=== PATIENT | male | born 1990 | race Hispanic/Latino ===

== ENCOUNTER 2023-06-27 21:47 | Emergency (ER) | payer SELFPAY ==
[~2023-06-27] VITALS: Ht 162.6 cm; Wt 78.0 kg
[~2023-06-27 21:47] MED LIST: AMOXICILLIN500 MG OR; AMOXICILLIN500 MG PO; CEPHALEXIN500 MG PO; CORTISPORIN OTI10 M2 AD; NO HOME MEDS
[2023-06-27] MEDS ORDERED: TRIAMCINOLON0.11 EX ×2 (22:01→22:18)
[2023-06-27 22:12] VITALS: BP 160/80
== END 2023-06-27 22:19 | disposition home or self-care (01) | DRG 607 ==
LOC: ED 21:47
DX: L25.9 Unspecified contact dermatitis, unspecified cause (principal)

== ENCOUNTER 2023-07-15 17:12 | Emergency (ER) | payer SELFPAY ==
[~2023-07-15] VITALS: Ht 162.6 cm; Wt 74.8 kg
[~2023-07-15 17:12] MED LIST changes: +TRIAMCINOLON0.11 EX
[2023-07-15 17:20] VITALS: BP 159/103
[2023-07-15] MEDS ORDERED: DRYSOL20 % EX (17:27)
[2023-07-15] MEDS ORDERED: STERAPRED DS10 MG PO (17:27)
[2023-07-15 17:30] VITALS: BP 146/92
[2023-07-15 17:45] VITALS: BP 142/92
== END 2023-07-15 17:49 | disposition home or self-care (01) | DRG 607 ==
LOC: ED 17:12
DX: L30.1 Dyshidrosis [pompholyx] (principal)